=== PATIENT | male | born 1950 | race Caucasian/White ===

== ENCOUNTER 2018-03-25 12:44 | Inpatient (IN) ==
--- NOTE | 2018-03-25 13:37 | EKG Report ---
Test Performed on : 03/25/2018 1:22:39 PM Test Reason : WEAKNESS, AMS Blood Pressure : / mmHG Vent. Rate : 052 BPM Atrial Rate : 052 BPM P-R Int : 134 ms QRS Dur : 088 ms QT Int : 508 ms P-R-T Axes : 031 -16 047 degrees QTc Int : 472 ms Sinus bradycardia. Left ventricular hypertrophy with repolarization abnormality Abnormal ECG When compared with ECG of 17-SEP-2017 09:25, Nonspecific T wave abnormality now evident in Lateral leads Unconfirmed Result
[2018-03-25 13:48] LABS: BASO# 0.02 X1000 (0.0-0.2); BASO% 0.4 % (0.0-0.8); EOS# 0.15 X1000 (0.0-0.7); HEMOGLOBIN 11.7 g/dL (14.0-18.0); LYMPH# 1.04 X1000 (1.2-3.4); LYMPH% 21.1 % (20.5-51.1); MCH 29.5 PG (27-31); MCHC 32.5 g/dL (33-37); MCV 90.9 FL (81-99); MONO# 0.61 X1000 (0.11-0.59); MONO% 12.3 % (1.7-9.3); MPV 9.9 FL (7.4-10.4); NEUT# 3.12 X1000 (1.4-6.5); NEUT% 63.2 % (42.2-75.2); PLT 137 X1000 (130-400); RBC 3.96 XMIL (4.7-6.1); RDW 13.2 % (11.5-14.5); WBC 4.94 X1000 (4.8-10.8)
[2018-03-25 13:55] LABS: INR 1.13; PROTIME 15.4 Seconds (11.0-16.0)
[2018-03-25 13:56] LABS: PTT 41.5 Seconds (22.3-41.8)
[2018-03-25] MEDS ORDERED: NS 1,000 ML IV ONE (14:04)
[2018-03-25] MEDS ORDERED: ASPIRIN PO ONE (14:05)
--- NOTE | 2018-03-25 14:05 | Diag Imaging Result Doc PS360 ---
CHEST-2 VIEWS - 03/25/2018 INDICATION: AMS, WEAKNESS COMPARISON: 08/15/2016 FINDINGS: The lungs are normally expanded and clear. Heart size and mediastinal contours are normal. No pneumothorax or pleural effusion. There are new CABG changes. IMPRESSION: Negative exam. Electronically signed by Alexi Joseph 03/25/2018 2:03 PM
[2018-03-25 14:11] LABS: ALB/GLOB RATIO 1.8; CALCIUM 9.5 mg/dL (8.8-10.2); CREATININE 1.7 mg/dL (0.7-1.2); TOTAL BILIRUBIN 0.81 mg/dL (0.20-1.00); TOTAL PROTEIN 6.2 g/dL (6.3-8.3)
--- NOTE | 2018-03-25 14:36 | Diag Imaging Result Doc PS360 ---
CT HEAD W/O CONTRAST - 03/25/2018 INDICATION: AMS COMPARISON: 05/17/2016 FINDINGS: There is some stable trace periventricular white matter chronic microvascular disease. The ventricles and sulci are normal in size and contour. No intracranial mass or hemorrhage. The skull is intact. The sinuses mastoids and middle ears are clear. IMPRESSION: No acute disease or change from prior. This exam was performed using automated exposure control, adjustment of mA or kV according to patient size, and/or use of iterative reconstruction technique Electronically signed by Alexi Joseph 03/25/2018 2:34 PM
[2018-03-25 15:10] LABS: ALLEN TEST YES; BE 3.1 mmoll (-3.0-3.0); BLOOD TYPE ARTERIAL; HCO3-(ACT) 27.3 mmoll (20.0-26.0); METHB 0.6 % (0.0-1.5); O2(CT) 15.5 mL/dL (15.0-23.0); O2HB 95.9 % (95.0-99.0); PCO2(98.6) 38 mmHg (35-45); PO2(98.6) 134 mmHg (60-100); SAMPLE BLOOD; SAO2 98.3 % (95.0-100.0); THB 11.3 g/dL (11.5-17.4); pH(98.6) 7.46 (7.35-7.45)
[2018-03-25 15:11] LABS: MODALITY ROOM AIR
[2018-03-25 16:57] LABS: URINE SOURCE CLEAN CATCH
[2018-03-25 17:00] LABS: BILIRUBIN URINE NEGATIVE (NEGATIVE); BLOOD URINE MODERATE (NEGATIVE); COLOR YELLOW; GLUCOSE URINE NEGATIVE (NEGATIVE); KETONE URINE TRACE mg/dL (NEGATIVE); LEUKOCYTES URINE MODERATE (NEGATIVE); NITRITE URINE NEGATIVE (NEGATIVE); PROTEIN URINE TRACE mg/dL (NEGATIVE); SP GRAVITY URINE 1.005; TURBIDITY URINE HAZY (CLEAR); UR EPITHELIAL CELLS <10 /HPF (<10); URINE BACTERIA 4+ /HPF; URINE RBC 20-40 /HPF (<10); URINE WBC TNTC /HPF (<10); UROBILINOGEN URINE NORMAL (NORMAL)
[2018-03-25] MEDS ORDERED: NITROGLYCERIN SL PRN (17:19)
--- NOTE | 2018-03-25 17:37 | PROVIDER DOCUMENTATION ---
This chart was entered by Natalia Rogers Scribe, acting as scribe for Tono Fay MD. HPI-Neurological Disorder - General Chief Complaint: Weakness Stated Complaint: weakness Time Seen by Provider: 03/25/18 13:29 Source: patient, family Allergies/Adverse Reactions: Patient Allergies Allergy/AdvReac Type Severity Reaction Status Date / Time No Known Allergies Allergy Verified 03/25/18 14:36 Home Medications: Home Medication List Medication Instructions Recorded Confirmed Last Taken Type Tamsulosin HCl [Flomax] 0.4 mg PO HS 05/06/14 03/25/18 1 Day Ago History ~03/24/18 Budesonide/Formoterol Inhaler 2 puff INH RTBID #1 inhaler 05/19/16 03/25/18 2 Months Ago Rx [Symbicort 160/4.5 Microgm Inhaler] ~01/23/18 Ferrous Sulfate 140 mg PO DAILY 09/17/17 03/25/18 03/25/18 History Nitroglycerin [Nitrostat] 0.4 mg SL PRN PRN 09/17/17 03/25/18 Unknown History ATORVAstatin [Lipitor] 20 mg PO QHS 03/25/18 03/25/18 1 Day Ago History ~03/24/18 Aspirin [Aspir-Low] 81 mg PO QAM 03/25/18 03/25/18 03/25/18 History Donepezil [Aricept] 10 mg PO QHS 03/25/18 03/25/18 1 Day Ago History ~03/24/18 Famotidine [Pepcid] 20 mg PO QAM 03/25/18 03/25/18 03/25/18 History Fludrocortisone Acetate 0.1 mg PO QAM 03/25/18 03/25/18 03/25/18 History Metoprolol Succinate [Toprol Xl] 25 mg PO QAM 03/25/18 03/25/18 03/25/18 History Oxybutynin [Ditropan] 5 mg PO BID 03/25/18 03/25/18 03/25/18 History Quetiapine Fumarate [Seroquel] 25 mg PO QHS 03/25/18 03/25/18 1 Day Ago History ~03/24/18 - History of Present Illness-Neuro Nature of Presenting Problem: 68yom with hx CVA, dementia, HTN, open heart surgery presents with confusion, generalized weakness, LUE/RUE pain and tingling for 3-4 days and headache for 3 weeks. The patient and his niece are poor historians. The patient's niece reports that he lives alone. He denies numbness, fever, chills, nausea, vomiting , diarrhea, cp, and sob. The patient's niece is at bedside. Severity: reports: mild, moderate Onset/Duration: reports: 3 days ago, 4 days ago, other (3 weeks, headache) Timing: reports: still present, intermittent, constant Context: reports: none Character of Altered Mental Status: reports: confused Any recent trauma/injury?: reports: none Cognitive Baseline: alert but confused Gait Baseline: walks without assistance Associated Symptoms: reports: headache, confusion, other (generalized weakness, LUE/RUE pain and tingling). denies: short of breath Similar Symptoms Previously?: No Recently seen or treated by another doctor?: No Review of Systems - Adult - REVIEW OF SYSTEMS - ADULT Constitutional: denies: chills, fever Eyes: denies: discharge, dry eyes Ears, Nose, Mouth & Throat: denies: ear discharge, ear pain Cardiovascular: denies: chest pain, palpitations Respiratory: denies: cough, shortness of breath Gastrointestinal: denies: abdominal pain, diarrhea, nausea, vomiting Genitourinary: denies: dysuria, hematuria Musculoskeletal: reports: muscle weakness (generalized weakness), other (LUE/ RUE pain and tingling). denies: back pain Integumentary: reports: no symptoms reported Neurological: reports: headache/migraines, other (confusion). denies: dizziness /vertigo Psychiatric: reports: no symptoms reported Endocrine: reports: no symptoms reported Hematologic/Lymphatic: reports: no symptoms reported Allergic/Immunologic: reports: no symptoms reported All Other Systems: Reviewed and Negative Past History - Adult - PAST MEDICAL HISTORY-ADULT Review of Records: reports: Old Records Reviewed, Nursing Assessment Review, Medications Reviewed Major Childhood Illnesses: reports: history unknown Cardiovascular: reports: HTN, hyperlipidemia Respiratory: reports: COPD Gastrointestinal: reports: GERD Obstetrical/Gynecological: reports: denies history Genitourinary: reports: other (enlarged prostate) Musculoskeletal: reports: denies history Neurological: reports: denies history Endocrine/Immune: reports: denies history Other Conditions: reports: denies history - PRIOR SURGERIES/PROCEDURES Surgical/Procedure History: reports: reviewed, not pertinent - PRIOR HOSPITALIZATIONS Prior Hospitalizations: reports: none - IMMUNIZATION STATUS Childhood Immunizations: See Nurse Assessment Flu Vaccine: See Nurse Assessment - FAMILY HISTORY Family History: reviewed, not pertinent - SOCIAL HISTORY Smoking: other (former) Substance Use: denies Living Situation: family Physical Exam- Neurological - Physical Exam-Neuro Initial Vital Signs Reviewed: Yes General Appearance: alert, no apparent distress, other (pt has hx of dementia, pt obeys most commands) Eye Exam: bilateral eye: normal inspection, PERRL, EOMI Head Injury: no evidence of injury. 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: normal hearing, PERRL Coordination/Gait: negative: normal finger to nose (unable due to inattention) Neurologic: window framer II-XII nml as tested, other (pt has hx of dementia) Integumentary: normal color, warm/dry Psych/Mental Status: other (alert, pt is oriented to person, place, but not time ) - Glascow Coma Scale Best Eye Response: (4) open spontaneously Best Verbal Response: (5) oriented Best Motor Response: (6) obeys commands Progress - PLAN OF CARE/RESULTS Progress/Plan/Lab Results: Vital Signs - 8 hr 03/25/18 12:59 03/25/18 16:57 Temperature 97.7 F 98 F Pulse Rate 58 L 53 L Respiratory Rate 18 18 Blood Pressure 123/65 153/85 O2 Sat by Pulse Oximetry 98 99 Laboratory Results - last 24 hr 03/25/18 03/25/18 03/25/18 13:25 13:25 13:25 WBC 4.94 RBC 3.96 L Hgb 11.7 L Hct 36.0 L MCV 90.9 MCH 29.5 MCHC 32.5 L RDW Std Deviation 13.2 Plt Count 137 MPV 9.9 Immature Gran % (Auto) 0.0 Neut % (Auto) 63.2 Lymph % (Auto) 21.1 [place] % (Auto) 12.3 H Eos % (Auto) 3.0 Baso % (Auto) 0.4 Immature Gran # (Auto) 0.00 Neut # (Auto) 3.12 Lymph # (Auto) 1.04 L [place] # (Auto) 0.61 H Eos # (Auto) 0.15 Baso # (Auto) 0.02 PT 15.4 INR 1.13 PTT (Actin FS) 41.5 Specimen Type Sample Site pH pCO2 pO2 HCO3 Base Excess Oxyhemoglobin ABG O2 Sat (Calculated) ABG O2 Saturation ABG Carboxyhemoglobin ABG Methemoglobin Marcio Test A-a O2 Difference Total Hemoglobin Lactate Blood Gas Modality FiO2 % Sodium 141 Potassium 4.0 Chloride 102 Carbon Dioxide 28 Anion Gap 11 BUN 17 Creatinine 1.7 H Estimated GFR/1.73 m2 40 BUN/Creatinine Ratio 10 Glucose 99 POC Glucose Calculated Osmolality 283 Calcium 9.5 Total Bilirubin 0.81 AST 11 ALT 8 L Alkaline Phosphatase 58 Creatine Kinase 67 Troponin T Total Protein 6.2 L Albumin 4.0 Globulin 2.2 Albumin/Globulin Ratio 1.8 Plasma Lactate TSH Urine Source Urine Color Urine Turbidity Urine pH Ur Specific [place] Urine Protein Ur Glucose (Stick) Ur Ketones (Stick) Urine Blood Urine Nitrite Urine Bilirubin Urobilinogen Dipstick Urine Leukocytes Urine WBC (Auto) Urine RBC (Auto) U Epithel Cells (Auto) Urine Bacteria (Auto) 03/25/18 03/25/18 03/25/18 13:25 13:25 13:25 WBC RBC Hgb Hct MCV MCH MCHC RDW Std Deviation Plt Count MPV Immature Gran % (Auto) Neut % (Auto) Lymph % (Auto) [place] % (Auto) Eos % (Auto) Baso % (Auto) Immature Gran # (Auto) Neut # (Auto) Lymph # (Auto) [place] # (Auto) Eos # (Auto) Baso # (Auto) PT INR PTT (Actin FS) Specimen Type Sample Site pH pCO2 pO2 HCO3 Base Excess Oxyhemoglobin ABG O2 Sat (Calculated) ABG O2 Saturation ABG Carboxyhemoglobin ABG Methemoglobin Marcio Test A-a O2 Difference Total Hemoglobin Lactate Blood Gas Modality FiO2 % Sodium Potassium Chloride Carbon Dioxide Anion Gap BUN Creatinine Estimated GFR/1.73 m2 BUN/Creatinine Ratio Glucose POC Glucose 93 Calculated Osmolality Calcium Total Bilirubin AST ALT Alkaline Phosphatase Creatine Kinase Troponin T < 0.010 Total Protein Albumin Globulin Albumin/Globulin Ratio Plasma Lactate TSH 3.12 Urine Source Urine Color Urine Turbidity Urine pH Ur Specific [place] Urine Protein Ur Glucose (Stick) Ur Ketones (Stick) Urine Blood Urine Nitrite Urine Bilirubin Urobilinogen Dipstick Urine Leukocytes Urine WBC (Auto) Urine RBC (Auto) U Epithel Cells (Auto) Urine Bacteria (Auto) 03/25/18 03/25/18 03/25/18 14:20 15:01 16:55 WBC RBC Hgb Hct MCV MCH MCHC RDW Std Deviation Plt Count MPV Immature Gran % (Auto) Neut % (Auto) Lymph % (Auto) [place] % (Auto) Eos % (Auto) Baso % (Auto) Immature Gran # (Auto) Neut # (Auto) Lymph # (Auto) [place] # (Auto) Eos # (Auto) Baso # (Auto) PT INR PTT (Actin FS) Specimen Type ARTERIAL Sample Site L RADIAL pH 7.46 H pCO2 38 pO2 134 H HCO3 27.3 H Base Excess 3.1 H Oxyhemoglobin 95.9 ABG O2 Sat (Calculated) 15.5 ABG O2 Saturation 98.3 ABG Carboxyhemoglobin 1.80 ABG Methemoglobin 0.6 Marcio Test YES A-a O2 Difference -32.0 Total Hemoglobin 11.3 L Lactate 0.70 Blood Gas Modality ROOM AIR FiO2 % 21.0 Sodium Potassium Chloride Carbon Dioxide Anion Gap BUN Creatinine Estimated GFR/1.73 m2 BUN/Creatinine Ratio Glucose POC Glucose Calculated Osmolality Calcium Total Bilirubin AST ALT Alkaline Phosphatase Creatine Kinase Troponin T Total Protein Albumin Globulin Albumin/Globulin Ratio Plasma Lactate 1.1 TSH Urine Source CLEAN CATCH Urine Color YELLOW Urine Turbidity HAZY Urine pH 6.0 Ur Specific [place] 1.005 Urine Protein TRACE A Ur Glucose (Stick) NEGATIVE Ur Ketones (Stick) TRACE A Urine Blood MODERATE A Urine Nitrite NEGATIVE Urine Bilirubin NEGATIVE Urobilinogen Dipstick NORMAL Urine Leukocytes MODERATE A Urine WBC (Auto) TNTC A Urine RBC (Auto) 20-40 A U Epithel Cells (Auto) <10 Urine Bacteria (Auto) 4+ Orders Category Date Time Status Admit - [facility] Routine AdmDCTranf 03/25/18 17:20 Active Activity - Up with Assistance ORDERED Care 03/25/18 17:20 Active Cardiac Monitoring DIRECTED Care 03/25/18 13:13 Active Cardiac Monitoring DIRECTED Care 03/25/18 13:59 Inactive DVT/PE Risk Assess/Protocol [QM] ORDERED Care 03/25/18 17:20 Active Finger Stick Blood Sugar (ED) DIRECTED Care 03/25/18 13:13 Active Finger Stick Blood Sugar (ED) DIRECTED Care 03/25/18 13:59 Inactive Intake and Output-Strict ORDERED Care 03/25/18 17:20 Active Oxygen Therapy- ED Nursing DIRECTED Care 03/25/18 13:13 Active Oxygen Therapy- ED Nursing DIRECTED Care 03/25/18 13:59 Active Saline Loc NOW Care 03/25/18 13:13 Active Saline Loc NOW Care 03/25/18 13:59 Active Vital Signs Order Q 8-HR ASSESS Care 03/25/18 17:20 Active Z-Document. for Tele Applied ORDERED Care 03/25/18 17:20 Active Social Service Consult Routine Cons 03/25/18 17:20 Active Heart Healthy Diet Diet 03/25/18 16:58 Completed Heart Healthy Diet Diet 03/25/18 17:21 Active CHEST-2 VIEWS [RAD] Stat Exams 03/25/18 13:[address] HEAD W/O CONTRAST [CT] Stat Exams 03/25/18 14:03 Completed ABG [RESP] Routine Lab 03/25/18 15:01 Completed CBC WITH ELECTRONIC DIFF [HEME] Stat Lab 03/25/18 13:25 Completed CK PROFILE [SP CHEM] Stat Lab 03/25/18 13:25 Completed COMPREHENSIVE METABOLIC PANEL [CHEM] Stat Lab 03/25/18 13:25 Completed LACTATE, PLASMA [CHEM] Stat Lab 03/25/18 14:20 Completed PROTIME WITH INR [COAG] Stat Lab 03/25/18 13:25 Completed PTT [COAG] Stat Lab 03/25/18 13:25 Completed TROPONIN T Stat Lab 03/25/18 13:25 Completed TSH Stat Lab 03/25/18 13:25 Completed URINALYSIS W/POSS RFLX CULT [URINALYSIS] Stat Lab 03/25/18 16:55 Completed URINE CULTURE [RM] Routine Lab 03/25/18 17:02 Received 0.9% Sodium Chloride Inj [Ns] 1,000 ml Med 03/25/18 17:20 Ordered IV 50 mls/hr 0.9% Sodium Chloride Inj [Ns] 1,000 ml Med 03/25/18 14:04 Discontinued IV 999 mls/hr ATORVAstatin [Lipitor] Med 03/25/18 21:00 Ordered 20 mg PO QHS Aspirin Med 03/25/18 14:05 Discontinued 325 mg PO NOW ONE Aspirin EC Med 03/26/18 09:00 Ordered 81 mg PO QAM Budesonide/Formoterol Inhaler [Symbicort 160/4.5 Med 03/25/18 19:30 Ordered Microgm Inhaler] 2 puff INH RTBID CefTRIAXONE [Rocephin] 1 gm Med 03/25/18 17:15 Ordered 0.9% Sodium Chloride Inj [Ns] 50 ml IV Q24H Donepezil [Aricept] Med 03/25/18 21:00 Ordered 10 mg PO QHS Enoxaparin [Lovenox] Med 03/25/18 17:20 Ordered 40 mg SUBQ Q24H Famotidine [Pepcid] Med 03/26/18 09:00 Ordered 20 mg PO QAM Ferrous Sulfate E.r. [Slow-Fe] Med 03/26/18 09:00 Ordered 140 mg PO DAILY Fludrocortisone [Florinef] Med 03/26/18 09:00 Ordered 0.1 mg PO QAM Metoprolol Succinate E.r. [Toprol Xl] Med 03/26/18 09:00 Ordered 25 mg PO QAM Nitroglycerin Sl [Nitroglycerin] Med 03/25/18 17:19 Ordered 0.4 mg SL PRN PRN Oxybutynin [Ditropan] Med 03/25/18 21:00 Ordered 5 mg PO BID Quetiapine [Seroquel] Med 03/25/18 21:00 Ordered 25 mg PO QHS Tamsulosin [Flomax] Med 03/25/18 21:00 Ordered 0.4 mg PO HS Altered Mental Status Stat Oth 03/25/18 13:13 Ordered Telemetry [OM.EQ] Routine Oth 03/25/18 17:20 Active EKG [EKG] Stat Ther 03/25/18 13:13 Draft Transfer/Admit Order [TRANSFER] Routine Transfer 03/25/18 16:56 Ordered Result Diagrams: 03/25/18 13:25 03/25/18 13:25 - EKG 1 Time of EKG reading by physician:: 13:20 EKG Read and Signed by:: Moises Stearns EKG Interpretation (*Must complete 3 of following elements*): Abnormal Rate: 52 Rhythm: Sinus bradycardia Elizabeth: normal QRS: LVH - XRAY 1 XRAY Study: Chest Impression: Abnormal (FINDINGS: The lungs are normally expanded and clear. Heart size and mediastinal contours are normal. No pneumothorax or pleural effusion. There are new CABG changes. IMPRESSION: Negative exam.) - CT/MRI 1 CT Study: Head Impression: Abnormal (FINDINGS: There is some stable trace periventricular white matter chronic microvascular disease. The ventricles and sulci are normal in size and contour. No intracranial mass or hemorrhage. The skull is intact. The sinuses mastoids and middle ears are clear. IMPRESSION: No acute disease or change from prior.) - CONSULTS/PCP/HOSPITALIST Notification #1 *Consult/PCP/Hospitalist*: yumiko Altamirano Dr. Time Discussed: 15:21 Consult Disposition: Will see in ED Departure - Departure Date of Disposition Decision: 03/25/18 Time of Disposition Decision: 15:21 DIAGNOSIS: Altered mental status Qualifiers: Altered mental status type: unspecified Qualified Code(s): R41.82 - Altered mental status, unspecified Disposition: ADMITTED INPATIENT 09 Certified Medical Emergency: Emergent Condition: Stable - Critical Care Note This patient required my direct & personal management of CC.: No Attestation - Physician/ DAWNA Attestation Patient care was provided by Advanced Practice Provider:: No The physician spent face to face time with patient:: Yes Advanced Practice Provider documentation review:: Supervising physician onsite and consulted in the evaluation and care of this patient. The physician did have a face to face encounter with the patient. This chart was documented by the indicated scribe, (Natalia Rogers Scribe) and accurately reflects the services I performed and decisions made by me, Tono Fay MD, as attested by the provider's signature.
--- NOTE | 2018-03-25 18:06 | HISTORY AND PHYSICAL ---
CHIEF COMPLAINT: Encephalopathy, HISTORY OF PRESENT ILLNESS: Mr. Tobias is a 68-year-old male with a history of coronary artery disease, prostate cancer, dementia, iron deficiency anemia, hyperlipidemia, and hypotension chronically who presents with his niece for encephalopathy. She states over the past 3 days or so he has been more lethargic and more confused. Today he was wandering which his niece felt was quite excessive and well beyond his baseline, so she brought him to the ER. There has been no fever, no cough, just confusion. No unilateral weakness. No slurred speech. No facial drooping. In the ER he had a head CT done which showed chronic changes. His chemistry shows an elevated creatinine which is chronic, otherwise unremarkable. His UA does show clear evidence of urinary tract infection. As such he is going to be admitted for further treatment and evaluation. PAST MEDICAL HISTORY: 1. Dementia. 2. Prostate cancer. 3. CKD. 4. Hyperlipidemia. 5. Chronic hypotension. 6. GERD. SURGICAL HISTORY: He has had CABG, prostate biopsy, left heart catheterization. SOCIAL HISTORY: He quit smoking some time ago. No tobacco, alcohol, or drug use. He lives at home alone. His niece comes to check on him daily. He has never been , has no children. FAMILY HISTORY: Noncontributory. REVIEW OF SYSTEMS: A 14-point review of systems obtained and found to be negative with the exception of the HPI. HOME MEDICATIONS: Aspirin 81 mg daily, Lipitor 20 mg h.s., donepezil 10 mg h.s., famotidine 20 mg a.m., ferrous sulfate 140 mg p.o. daily, fludrocortisone 0.1 mg p.o. a.m., Toprol XL 25 mg a.m., Nitrostat 0.4 mg sublingual as needed, Ditropan 5 mg b.i.d., Seroquel 25 mg p.o. h.s., Flomax 0.4 mg h.s., budesonide/formoterol inhaler as needed. ALLERGIES: No known drug allergies. PHYSICAL EXAMINATION: VITAL SIGNS: Blood pressure 153/85. Heart rate 53. Respiratory rate 18. O2 sat 99% on room air. Temperature 98 degrees Fahrenheit. GENERAL: An elderly, disheveled appearing, 68-year-old male appears older than stated age, lying on the hospital bed in no acute distress. NEUROLOGIC: He is oriented, it takes him some time to answer questions, but he does answer them correctly. He follows commands without focal deficits. He does overall seem somewhat encephalopathic. HEENT: Head is atraumatic and normocephalic. Pupils are equal, round, and reactive to light. Oral mucosa is moist. NECK: Trachea is midline. There is no JVD. CHEST: Clear to auscultation. CV: Regular rate and rhythm. S1, S2 is noted. GI: Soft, nondistended, nontender. Bowel sounds are hypoactive. EXTREMITIES: No edema. Pulses are diminished but palpable. DIAGNOSTIC DATA: Head CT: Chronic changes, nothing acute. Chest x-ray: Nothing acute, CABG changes noted. WBC 4.94, hemoglobin 11.7, hematocrit 36, platelet count 137. INR 1.13. ABG on room air: pH 7.46, CO2 38, O2 134, bicarbonate 27.3. Only remarkable chemistry creatinine 1.7. Protein 6.2. UA shows clear evidence of UTI. ASSESSMENT AND PLAN: 1. Metabolic encephalopathy on chronic dementia: Likely secondary to urinary tract infection. We will add Rocephin and continue fluids. Await urine culture, monitor neuro status. 2. Chronic kidney disease, stable: We will continue to monitor. Continue home medications. Be cautious with nephrotoxic medications. 3. Coronary artery disease, stable: Continue home medications. The patient denies any chest pain. 4. History of hypotension: The patient is on fludrocortisone; however, currently his blood pressure is actually on the high side. We will continue to monitor blood pressure and continue his home medications. 5. Prostate cancer: Aware. 6. Iron deficiency anemia: Continue home iron. 7. Deep venous thrombosis prophylaxis with Lovenox. Further recommendations to follow. Dictated by ROD Tellez for Elijah Fletcher MD cc: ROD Tellez MD Luis N. Villanueva, MD
[2018-03-25] MEDS: NS 1,000 ML IV SCH (18:54)
[2018-03-25] MEDS: SYMBICORT 160/4.5 MICROGM INHALER INH SCH (19:14)
[2018-03-25] MEDS: ROCEPHIN 1 GM in NS 50 ML IV SCH (19:55)
[2018-03-25] MEDS: LIPITOR PO SCH (20:01)
[2018-03-25] MEDS: DITROPAN PO SCH (20:01)
[2018-03-25] MEDS: FLOMAX PO SCH (20:02)
[2018-03-25] MEDS: LOVENOX SUBQ SCH (20:02)
[2018-03-25] MEDS: SEROQUEL PO SCH (20:02)
[2018-03-25] MEDS: ARICEPT PO SCH (20:02)
[2018-03-26] MEDS: TYLENOL PO PRN ×2 (06:41→11:44)
[2018-03-26 07:41] LABS: BASO# 0.02 X1000 (0.0-0.2); BASO% 0.4 % (0.0-0.8); EOS# 0.18 X1000 (0.0-0.7); EOS% 3.7 % (0.0-10.0); HEMATOCRIT 34.4 % (42.0-52.0); HEMOGLOBIN 11.2 g/dL (14.0-18.0); LYMPH# 0.92 X1000 (1.2-3.4); MCH 29.6 PG (27-31); MCHC 32.6 g/dL (33-37); MCV 90.8 FL (81-99); MONO# 0.68 X1000 (0.11-0.59); MPV 10.1 FL (7.4-10.4); NEUT# 3.05 X1000 (1.4-6.5); NEUT% 62.9 % (42.2-75.2); PLT 125 X1000 (130-400); RBC 3.79 XMIL (4.7-6.1); RDW 13.4 % (11.5-14.5); WBC 4.85 X1000 (4.8-10.8)
[2018-03-26] MEDS: SYMBICORT 160/4.5 MICROGM INHALER INH SCH ×2 (07:52→19:13)
[2018-03-26 08:06] LABS: ALB/GLOB RATIO 1.9; ALBUMIN 3.7 g/dL (3.5-5.0); CREATININE 1.5 mg/dL (0.7-1.2); MAGNESIUM 1.9 mg/dL (1.5-2.7); POTASSIUM 3.8 mmol/L (3.5-5.1); TOTAL BILIRUBIN 0.65 mg/dL (0.20-1.00); TOTAL PROTEIN 5.7 g/dL (6.3-8.3)
[2018-03-26] MEDS ORDERED: TOPROL XL PO SCH (09:00)
[2018-03-26] MEDS: PEPCID PO SCH (11:31)
[2018-03-26] MEDS: DITROPAN PO SCH ×2 (11:31→21:25)
[2018-03-26] MEDS: ASPIRIN EC PO SCH (11:31)
[2018-03-26] MEDS: SLOW-FE PO SCH (11:32)
[2018-03-26] MEDS: FLORINEF PO SCH (11:32)
--- NOTE | 2018-03-26 14:22 | PROGRESS NOTE ---
DATE: 03/26/2018 SUBJECTIVE: At the moment of the physical exam, he was feeling fine. Overnight he apparently had an episode of presyncope or syncope. He tried to go to the bathroom, and he apparently basically passed out. We measured orthostatics and is positive. His blood pressure in the supine position is 181/82 and upon standing was 122/63. Blood pressure has been stable during today, and he feels better. He is oriented x3. He does have a urinary tract infection, and he is getting treatment with ceftriaxone. It looks like he has a history of hypotension, and the patient is on fludrocortisone; however, his blood pressure has been up and down. The lowest has been 123/65 and the highest 187/68. When I asked the patient about this medication, he is not quite sure why he is taking it and how long he has taken it. No family members at the bedside at this moment. OBJECTIVE: Vital signs: Temperature is 97.8, pulse 63, respiratory rate 16, blood pressure 143/67, oxygen saturation 98% on room air. HEENT: Head is normocephalic and atraumatic. PERRLA. Neck: Supple. No JVD. Central trachea. Chest: Clear to auscultation. No wheezing or rales. Abdomen: Soft, nontender and nondistended. No hepatosplenomegaly. Extremities: No edema. No clubbing. No cyanosis. Neurologic: At this moment, the patient is sleepy but arousable, oriented x3. He is following commands. He is answering my questions. He has a history of dementia. DIAGNOSTIC DATA: WBC is 4.8, hemoglobin 11.2, hematocrit 34.4, platelets 125. Sodium is 145, potassium 3.8, chloride 106, bicarbonate 26, BUN is 18, creatinine 1.5, glucose 82, calcium 9, magnesium 1.9, AST is 10, ALT is 7, alkaline phosphatase 53, albumin 3.7. ASSESSMENT AND PLAN: 1. Metabolic encephalopathy in a patient with dementia. Probably this is secondary to urinary tract infection. We will continue with ceftriaxone. Urine culture so far negative. We will continue to monitor. 2. This patient had an episode of syncope during the night. Orthostatics are positive. The metoprolol has been on hold. His heart rate has been mainly in the 50s and 60s. We will continue to monitor. 3. Chronic kidney disease. Stable. 4. History of coronary artery disease. Stable. He is not complaining of chest pain at this moment. 5. History of hypotension. This patient has been placed back on fludrocortisone. His blood pressure has been going up and down. The lowest has been a systolic blood pressure in the 120s and the highest in the 180s. We will continue to monitor. 6. Prostate cancer. Aware. 7. Iron deficiency anemia. Continue to monitor. 8. DVT prophylaxis with Lovenox. cc: Elijah Fletcher MD
[2018-03-26] MEDS: NORVASC PO SCH (19:24)
[2018-03-26] MEDS: NS 1,000 ML IV SCH (19:24)
[2018-03-26] MEDS: ROCEPHIN 1 GM in NS 50 ML IV SCH (21:24)
[2018-03-26] MEDS: ARICEPT PO SCH (21:25)
[2018-03-26] MEDS: SEROQUEL PO SCH (21:25)
[2018-03-26] MEDS: LIPITOR PO SCH (21:25)
[2018-03-26] MEDS: LOVENOX SUBQ SCH (21:25)
[2018-03-26] MEDS: FLOMAX PO SCH (21:25)
[2018-03-27 07:19] LABS: CALCIUM 8.8 mg/dL (8.8-10.2); CREATININE 1.5 mg/dL (0.7-1.2); POTASSIUM 3.6 mmol/L (3.5-5.1)
[2018-03-27] MEDS: FLORINEF PO SCH (08:02)
[2018-03-27] MEDS: PEPCID PO SCH (08:02)
[2018-03-27] MEDS: ASPIRIN EC PO SCH (08:02)
[2018-03-27] MEDS: NORVASC PO SCH ×2 (08:02→20:44)
[2018-03-27] MEDS: DITROPAN PO SCH ×2 (08:02→20:44)
[2018-03-27] MEDS: SLOW-FE PO SCH (08:02)
[2018-03-27] MEDS: SYMBICORT 160/4.5 MICROGM INHALER INH SCH ×2 (08:20→19:07)
--- NOTE | 2018-03-27 10:25 | PROGRESS NOTE ---
DATE: 03/27/2018 SUBJECTIVE: This patient is feeling better. We held the metoprolol yesterday. Blood pressures have been a little bit elevated, but the heart rate is still in the 50s mostly when he is sleeping and 60s when he is awake. I have requested an evaluation by Cardiology Department to re-evaluate this patient. Recently he had a cardiac catheterization and I do believe he has been treated only medically. He is not complaining of chest pain at this moment. I put him on amlodipine twice a day. I will monitor. OBJECTIVE: Vital Signs: Temperature 98.2 degrees, pulse 57, respiratory rate 20, blood pressure 156/64, oxygen saturation 98% on room air. HEENT: Head normocephalic. No trauma. PERRLA. Neck: Supple. No JVD. Central trachea. Chest: Clear to auscultation. No wheezing. No rales. Abdomen: Soft, nontender, nondistended. No hepatosplenomegaly. Cardiovascular: Regular rhythm and rate. Bradycardic. Extremities: No edema. No clubbing. No cyanosis. Neurological: This patient is sleepy, but arousable. He is oriented x3. He is following commands and answering my questions. He has history of dementia. LABORATORY: Sodium 145, potassium 3.6, chloride 107, bicarbonate 27, BUN 20, creatinine 1.5, glucose 92, calcium 8.8. ASSESSMENT AND PLAN: 1. Metabolic encephalopathy in a patient with dementia, likely secondary to urinary tract infection. The urine culture is still negative, but this patient was complaining of some discomfort during urination. He seems to be doing better. We will monitor. 2. Episode of syncope during the night. Orthostatics are positive. Metoprolol has been on hold. Heart rate has been mainly in the 50s and 60s even without treatment. Cardiology Department has been consulted to see if we need to continue or change the treatment. 3. Chronic kidney disease, stable. 4. History of coronary artery disease, stable. He is not complaining of chest pain at this moment. 5. History of hypertension this patient has been placed back on fludrocortisone. His blood pressure has been going up and down. I am not quite sure how long he has been on this medication or who prescribed that medication for him. For now, I will continue. His blood pressure has been high though. Probably also they have prescribed this medication for his orthostatic hypotension. 6. Prostate cancer. Aware. 7. Iron deficiency anemia. Continue to monitor. 8. Deep vein thrombosis prophylaxis with Lovenox. cc: Elijah Fletcher MD
--- NOTE | 2018-03-27 19:53 | CARDIOLOGY CONSULTATION ---
DATE: 03/27/2018 Cardiology was consulted for postural hypotension. 68-year-old gentleman with history of dementia, CAD. Over the last 3 to 4 days has become lethargic and more confused. There is no focal weakness to suggest a CVA or TIA. Denies chest pain suggestive of angina. There is no orthopnea, paroxysmal nocturnal dyspnea. He feels better today. When he was admitted. He was noted to be orthostatic. Beta-blockers were discontinued. He was also noted to have bradycardia heart rate in the 50s and then he has been put on calcium channel blockers. There is no history of palpitations. He states at home he has symptoms suggestive of postural hypotension. He tends to sit up and walk after standing for a few minutes. REVIEW OF SYSTEM: 14 -point review of systems was done .GI: There is no history of nausea, vomiting, or diarrhea. There is no history of hematemesis or melena. Central nervous system: No focal weakness to suggest CVA, TIA. Genitourinary: There is no dysuria or hematuria. PAST MEDICAL HISTORY: 1. Coronary artery disease status post coronary artery bypass grafting. The patient's last cardiac catheterization revealed 3 vessel coronary artery disease, 50 to 60 percent LAD proximal, 60 to 74 percent circumflex and severe stenosis of the distal right coronary artery with preserved left ventricular systolic function. 2. Dementia. 3. Prostate cancer. 4. Renal insufficiency. 5. Hypertension. 6. Gastroesophageal reflux disease. 7. He has had prostate biopsy in the past. HOME MEDICATIONS: Include aspirin 81 mg a day, Lipitor, donepezil, famotidine 20, iron sulfate, fludrocortisone 0.1, Toprol-XL 25, Ditropan, Seroquel, Flomax, inhalers . ALLERGIES: He is not known to be allergic to any medication. PHYSICAL EXAMINATION: Blood pressure 140/67, earlier blood pressure was orthostatic with standing blood pressure of 92/46, sitting blood pressure of 124/68. Jugular venous pressure was normal, 1st and second heart sounds were heard. There was no S3 gallop. LABORATORY EXAMINATION: Sodium 145, potassium 3.6, BUN 20, creatinine 1.5.Respiratory System: Normal air entry. There is no crepitations or rhonchi. Abdomen: Soft, nontender. There was no guarding or rigidity. Bowel sounds were heard. Central nervous system: Alert and was moving all 4 extremities. Examination of extremities revealed no pedal edema. HEENT: Atraumatic, normocephalic. Pupils were equal and reacting to light. Urine examination revealed RBCs 20 to 40, WBCs [id number]-count, urine leuks moderate, nitrites negative. Patient has been given antibiotics. ASSESSMENT AND PLAN: 1. Mr. Tyrell Tobias is a 68-year-old gentleman with history of dementia, hypertension, hyperlipidemia, chronic kidney disease has undergone coronary artery bypass grafting last year. He is admitted with more lethargy and confusion, today he feels better. He was noted to be orthostatic, beta-blockers have been held. He has history of hypertension, has been started on Norvasc, would recommend continuing the same. 2. Urine infection, continue with antibiotics as planned. 3. Coronary artery disease. No chest pain. Continue with aspirin 4. Hyperlipidemia, continue with atorvastatin, he is has history of dementia is on Aricept and Seroquel 25 mg p.o. at bedtime, I have not made any other changes at the present time. Thank you for the consult. Will follow hospital course. cc: Ryan Logan MD
[2018-03-27] MEDS: LIPITOR PO SCH (20:43)
[2018-03-27] MEDS: SEROQUEL PO SCH (20:43)
[2018-03-27] MEDS: ROCEPHIN 1 GM in NS 50 ML IV SCH (20:43)
[2018-03-27] MEDS: FLOMAX PO SCH (20:44)
[2018-03-27] MEDS: LOVENOX SUBQ SCH (20:44)
[2018-03-27] MEDS: ARICEPT PO SCH (20:44)
[2018-03-28] MEDS: NS 1,000 ML IV SCH ×2 (05:02→08:55)
[2018-03-28 05:53] LABS: BASO# 0.02 X1000 (0.0-0.2); BASO% 0.5 % (0.0-0.8); EOS# 0.23 X1000 (0.0-0.7); EOS% 6.1 % (0.0-10.0); HEMATOCRIT 30.8 % (42.0-52.0); HEMOGLOBIN 10.2 g/dL (14.0-18.0); LYMPH# 1.08 X1000 (1.2-3.4); LYMPH% 28.8 % (20.5-51.1); MCH 29.9 PG (27-31); MCHC 33.1 g/dL (33-37); MCV 90.3 FL (81-99); MONO# 0.66 X1000 (0.11-0.59); MONO% 17.6 % (1.7-9.3); MPV 9.8 FL (7.4-10.4); NEUT# 1.76 X1000 (1.4-6.5); PLT 110 X1000 (130-400); RBC 3.41 XMIL (4.7-6.1); RDW 13.4 % (11.5-14.5); WBC 3.75 X1000 (4.8-10.8)
[2018-03-28 06:45] LABS: CALCIUM 8.8 mg/dL (8.8-10.2); CREATININE 1.4 mg/dL (0.7-1.2); POTASSIUM 3.7 mmol/L (3.5-5.1)
[2018-03-28] MEDS: SYMBICORT 160/4.5 MICROGM INHALER INH SCH (07:47)
--- NOTE | 2018-03-28 07:55 | EKG Report ---
Test Performed on : 03/26/2018 05:12:26 AM Test Reason : Syncope Blood Pressure : / mmHG Vent. Rate : 057 BPM Atrial Rate : 057 BPM P-R Int : 150 ms QRS Dur : 088 ms QT Int : 502 ms P-R-T Axes : 023 -23 012 degrees QTc Int : 488 ms Sinus bradycardia. Minimal voltage criteria for LVH, may be normal variant Prolonged QT Abnormal ECG When compared with ECG of 25-MAR-2018 13:22, (Unconfirmed) Nonspecific T wave abnormality, improved in Lateral leads Confirmed by Yaz LUU, Iker Hidalgo ([id number]) on 03/28/2018 8:40:04 AM
[2018-03-28] MEDS: SLOW-FE PO SCH (08:52)
[2018-03-28] MEDS: FLORINEF PO SCH (08:52)
[2018-03-28] MEDS: DITROPAN PO SCH (08:52)
[2018-03-28] MEDS: ASPIRIN EC PO SCH (08:52)
[2018-03-28] MEDS: PEPCID PO SCH (08:52)
[2018-03-28] MEDS: NORVASC PO SCH (08:52)
[2018-03-28 12:51] VITALS: BP 141/73
--- NOTE | 2018-03-28 16:34 | DISCHARGE SUMMARY ---
ADMISSION DATE: 03/25/2018 DISCHARGE DATE: 03/28/2018 DISCHARGE DIAGNOSES: 1. Metabolic encephalopathy in a patient with dementia. 2. Syncope. 3. Chronic kidney disease. 4. History of coronary artery disease. 5. Hypertension. 6. Prostate cancer. 7. Iron deficiency anemia. HOSPITAL COURSE: A 68-year-old male with a history of coronary artery disease, prostate cancer, dementia, iron-deficiency anemia, hyperlipidemia, hypotension chronically, presented to the emergency department with his knees for acute on chronic encephalopathy. He was admitted on 03/25/2018. As per the family member, he has been at least 3 day more lethargic and confused. The day of admission he was wondering which his niece felt was quite excessive and beyond his baseline, so she brought this patient to the ER. No fever, cough, just confusion. No unilateral weakness, no slurred speech. No facial drooping. In the ER, CT of the head showed chronic changes, his chemistry showed an elevated creatinine which is chronic. Otherwise, unremarkable but he has an urinalysis that showed a urinary tract infection. He was admitted for further treatment and re-evaluation. He was placed on fluids and antibiotics, we basically put him back on his home medications. He has been on beta blockers. His heart rate always was mostly in the 50s and 60s, but it looks like he has been having orthostatic hypotension. Since this patient has been having this problem and also bradycardia we have decided to stop the beta sommer completely. To control the blood pressure we are using amlodipine which is working fine. He before making this decision of stopping the beta sommer. He had a syncopal episode trying to stand up and go to the bathroom. We checked the orthostatic vital signs and the systolic blood pressure was in the 180s and dropped to 120s once he stood up from the bed. The patient otherwise was feeling much better. He was completely alert and oriented x 2. He is not oriented to time, but he was able to say who was the vice president business development and even his date of . I do believe this is baseline. Urine culture showed probably contamination. He will be discharged today. I will stop the antibiotics. I told the patient to keep himself hydrated. Follow up with his mobile unit assistant and primary care doctor in the next two weeks. At the moment of discharge, this patient was tolerating p.o. He was ambulating without assistance and I believe back to his baseline mental status. OBJECTIVE: Vital Signs: Temperature 98.1, pulse 63, respiratory rate 16, blood pressure 138/60, oxygen saturation 97% on room air. HEENT: Head normocephalic. No trauma. PERRLA. Neck: Supple. No JVD. No masses. Central trachea. Chest: Clear to auscultation. No wheezing. No rales. Abdomen: Soft, nontender, nondistended. No hepatosplenomegaly. Extremities: No edema. No clubbing. No cyanosis. Neurologic: The patient is alert and oriented x 3. No focal deficits. LABORATORY: WBC 3.7, hemoglobin 10.2, hematocrit 30.8, platelets 110,000. Sodium 144, potassium 3.7, chloride 108, bicarbonate 27, BUN 20, creatinine 1.4, glucose 95. DISCHARGE MEDICATIONS: Basically, he will continue with his home medications except beta blockers. Amlodipine 5 mg p.o. b.i.d., atorvastatin 20 mg p.o. at bedtime, Symbicort 2 puff inhaler twice a day, ferrous sulfate 140 mg p.o. daily, nitroglycerin 0.4 mg sublingual p.r.n., aspirin 81 mg p.o. q.a.m., Ditropan 5 mg p.o. b.i.d., tamsulosin 0.4 mg p.o. at bedtime, donepezil 10 mg p.o. at bedtime, fludrocortisone 0.1 mg p.o. q.a.m., Seroquel 35 mg p.o. at bedtime and famotidine 20 mg p.o. q.a.m. TIME SPENT: Time discharging this patient 35 minutes. cc: Elijah Fletcher MD MTDD
== END 2018-03-28 15:41 | disposition home or self-care (01) | DRG 72 ==
LOC: 4N 12:44 → ED 12:44 → UNDODISOB 03-28 15:41
PROVIDERS: ATTEND Internal Medicine
CPT/HCPCS: 70450; 71020; 71046; 80048; 80053; 81001; 82550; 82805; 82948; 83605; 83735; 84443; 84484; 85025; 85610; 85730; 87077; 87088; 93005; 93010; 94640; 94760; 96360; 96361; 96365; 96366; 96372; 96376; 99285; A9270; G0378; J0696; J1650; J7030; XXXXX